=== PATIENT | male | born 1955 | race Caucasian/White ===

== ENCOUNTER 2017-04-21 21:02 | Inpatient (IN) | payer OTHER ==
[2017-04-21 22:58] LABS: ADD MAN DIFF? NO
[2017-04-21 23:04] LABS: BASOPHIL # 0.1 10^3/ul (0.0-0.1); BASOPHILS % 0.5 % (0.0-2.0); EOSINOPHILS # 0.1 10^3/ul (0.0-0.5); EOSINOPHILS % 0.9 % (0.0-7.0); HEMATOCRIT 40.2 % (42.0-52.0); HEMOGLOBIN 13.6 g/dl (14.0-18.0); LYMPHOCYTES # 4.9 10^3/ul (0.8-2.9); LYMPHOCYTES % 31.7 % (15.0-51.0); MEAN CORPUSCULAR HEMOGLOBIN 28.6 pg (29.0-33.0); MEAN CORPUSCULAR HGB CONC 33.8 g/dl (32.0-37.0); MEAN CORPUSCULAR VOLUME 84.5 fl (82.0-101.0); MEAN PLATELET VOLUME 10.2 fl (7.4-10.4); MONOCYTE # 1.2 10^3/ul (0.3-0.9); MONOCYTES % 7.8 % (0.0-11.0); NEUTROPHILS % 58.6 % (39.0-77.0); PLATELET COUNT 279 10^3/UL (140-415); RED BLOOD COUNT 4.76 10^6/ul (4.70-6.10); RED CELL DISTRIBUTION WIDTH 13.5 % (11.5-14.5)
[2017-04-21 23:04] LABS: WHITE BLOOD COUNT 15.3 10^3/ul (4.8-10.8)
[2017-04-21 23:20] LABS: ALANINE AMINOTRANSFERASE 32 IU/L (13-69); ALBUMIN/GLOBULIN RATIO 1.25; ALKALINE PHOSPHATASE 54 IU/L (42-121); ANION GAP 15 (8-16); ASPARTATE AMINO TRANSFERASE 20 IU/L (15-46); BLOOD UREA NITROGEN 22 mg/dl (7-20); CALCIUM 9.4 mg/dl (8.4-10.2); CARBON DIOXIDE 22 mmol/L (21-31); CHLORIDE 109 mmol/L (97-110); CREATININE 0.79 mg/dl (0.61-1.24); GLUCOSE 129 mg/dl (70-220); POTASSIUM 3.4 mmol/L (3.5-5.1); SODIUM 143 mmol/L (135-144); TOTAL PROTEIN 7.2 g/dl (6.1-8.1)
[2017-04-21 23:32] LABS: B-TYPE NATRIURETIC PEPTIDE 231 PG/ML (0-125); TROPONIN-I 0.019 ng/ml (0.00-0.12)
[2017-04-21 23:45] LABS: INR 0.95; PROTIME 12.8 Sec (11.9-14.9)
[2017-04-21 23:46] LABS: PARTIAL THROMBOPLASTIN TIME 26.5 Sec (25.0-35.0)
[2017-04-22] MEDS ORDERED: NACL 0.9% 3 ML SYG IV (02:30)
[2017-04-22] MEDS ORDERED: DOCUSATE SODIUM 100 MG CAP PO (02:30)
[2017-04-22] MEDS ORDERED: ACETAMINOPHEN 325 MG TAB PO (02:30)
[2017-04-22] MEDS ORDERED: BISACODYL (EC) 5 MG TAB PO (02:30)
[2017-04-22] MEDS ORDERED: NITROGLYCERIN (SL) 0.4 MG TAB SL (02:30)
[2017-04-22 05:30] LABS: ADD MAN DIFF? NO
[2017-04-22 05:33] LABS: BASOPHIL # 0.1 10^3/ul (0.0-0.1); BASOPHILS % 0.5 % (0.0-2.0); EOSINOPHILS # 0.2 10^3/ul (0.0-0.5); EOSINOPHILS % 1.9 % (0.0-7.0); HEMATOCRIT 39.8 % (42.0-52.0); HEMOGLOBIN 13.3 g/dl (14.0-18.0); LYMPHOCYTES # 3.7 10^3/ul (0.8-2.9); MEAN CORPUSCULAR HEMOGLOBIN 28.5 pg (29.0-33.0); MEAN CORPUSCULAR HGB CONC 33.4 g/dl (32.0-37.0); MEAN CORPUSCULAR VOLUME 85.4 fl (82.0-101.0); MEAN PLATELET VOLUME 10.4 fl (7.4-10.4); NEUTROPHIL # 6.2 10^3/ul (1.6-7.5); NEUTROPHILS % 55.1 % (39.0-77.0); PLATELET COUNT 263 10^3/UL (140-415); RED BLOOD COUNT 4.66 10^6/ul (4.70-6.10); RED CELL DISTRIBUTION WIDTH 13.9 % (11.5-14.5)
[2017-04-22 05:33] LABS: WHITE BLOOD COUNT 11.3 10^3/ul (4.8-10.8)
[2017-04-22] MEDS: METHYLPREDNISOLONE 125 MG INJ IV (05:34)
[2017-04-22] MEDS: ALBUTEROL/IPRATROPIUM (NEB) 3 ML AMP HHN ×5 (05:39→20:18)
[2017-04-22 06:03] LABS: MAGNESIUM 2.4 mg/dl (1.7-2.5)
[2017-04-22 06:03] LABS: CREATINE KINASE 99 IU/L (23-200)
[2017-04-22] MEDS: LEVOFLOXACIN 750MG/D5W (PMX) 150 ML IVPB (06:06)
[2017-04-22 06:08] LABS: CHOLESTEROL 121 mg/dl (100-200)
[2017-04-22 06:08] LABS: ALANINE AMINOTRANSFERASE 33 IU/L (13-69); ALBUMIN 3.8 g/dl (3.3-4.9); ALBUMIN/GLOBULIN RATIO 1.35; ALKALINE PHOSPHATASE 53 IU/L (42-121); ANION GAP 16 (8-16); ASPARTATE AMINO TRANSFERASE 20 IU/L (15-46); BILIRUBIN,INDIRECT 0.1 mg/dl (0-1.1); BILIRUBIN,TOTAL 0.1 mg/dl (0.2-1.3); BLOOD UREA NITROGEN 20 mg/dl (7-20); CALCIUM 8.7 mg/dl (8.4-10.2); CARBON DIOXIDE 27 mmol/L (21-31); CHLORIDE 109 mmol/L (97-110); CHOL/HDL RATIO 4.8 RATIO; CREATININE 0.73 mg/dl (0.61-1.24); GLUCOSE 96 mg/dl (70-220); HDL CHOLESTEROL 25 mg/dl (30-78); LDL CHOLESTEROL,CALCULATED 64 mg/dl; POTASSIUM 3.6 mmol/L (3.5-5.1); SODIUM 148 mmol/L (135-144); TOTAL PROTEIN 6.6 g/dl (6.1-8.1); TRIGLYCERIDES 160 mg/dl (0-149)
[2017-04-22 06:12] LABS: CK INDEX 1.4
[2017-04-22 06:28] LABS: CK-MB 1.42 ng/ml (0.0-2.4); TROPONIN-I < 0.012 ng/ml (0.00-0.12)
[2017-04-22 07:45] LABS: HEMOGLOBIN A1C 5.3 % (0-5.9)
[2017-04-22] MEDS ORDERED: ASPIRIN 81 MG TAB PO (09:00)
[2017-04-22] MEDS: ONDANSETRON 4 MG TAB PO (09:49)
[2017-04-22] MEDS: morphine 2 MG INJ IV (09:51)
[2017-04-22 11:46] LABS: CREATINE KINASE 90 IU/L (23-200)
[2017-04-22 11:59] LABS: CK INDEX 1.4
[2017-04-22 12:03] LABS: TROPONIN-I < 0.012 ng/ml (0.00-0.12)
[2017-04-22] MEDS: NICOTINE (21 MG/24 HR) PATCH TRANSDERM (12:57)
[2017-04-22] MEDS: METHYLPREDNISOLONE 40 MG INJ IV (20:15)
[2017-04-22] MEDS: FISH OIL 1,000 MG CAP PO (21:56)
[2017-04-22] MEDS: MONTELUKAST 10 MG TAB PO (21:57)
[2017-04-23] MEDS: ALBUTEROL/IPRATROPIUM (NEB) 3 ML AMP HHN ×6 (01:00→20:59)
[2017-04-23] MEDS: morphine 2 MG INJ IV ×3 (05:00→23:48)
[2017-04-23] MEDS: METHYLPREDNISOLONE 40 MG INJ IV (09:28)
[2017-04-23] MEDS: NICOTINE (21 MG/24 HR) PATCH TRANSDERM (09:28)
[2017-04-23] MEDS: FISH OIL 1,000 MG CAP PO ×2 (09:28→20:57)
[2017-04-23 10:16] LABS: ANION GAP 12 (8-16); BLOOD UREA NITROGEN 21 mg/dl (7-20); CALCIUM 8.9 mg/dl (8.4-10.2); CARBON DIOXIDE 27 mmol/L (21-31); CHLORIDE 107 mmol/L (97-110); CREATININE 0.79 mg/dl (0.61-1.24); GLUCOSE 131 mg/dl (70-220); MAGNESIUM 2.2 mg/dl (1.7-2.5); POTASSIUM 4.1 mmol/L (3.5-5.1); SODIUM 142 mmol/L (135-144)
[2017-04-23] MEDS ORDERED: ALPRAZOLAM 0.25 MG TAB (10:33)
[2017-04-23] MEDS: ALPRAZOLAM 0.5 MG TAB PO (10:36)
[2017-04-23] MEDS: SALMETEROL/FLUTICASONE 100/50 INHA INH (20:57)
[2017-04-23] MEDS: MONTELUKAST 10 MG TAB PO (20:58)
[2017-04-23] MEDS: ZOLPIDEM 5 MG TAB PO (23:41)
[2017-04-23] MEDS: ONDANSETRON 4 MG TAB PO (23:47)
[2017-04-24] MEDS: ALBUTEROL/IPRATROPIUM (NEB) 3 ML AMP HHN ×5 (00:12→18:00)
[2017-04-24] MEDS: SALMETEROL/FLUTICASONE 100/50 INHA INH (10:07)
[2017-04-24] MEDS: FISH OIL 1,000 MG CAP PO (10:08)
[2017-04-24] MEDS: predniSONE 20 MG TAB PO (10:09)
[2017-04-24] MEDS: NICOTINE (21 MG/24 HR) PATCH TRANSDERM (10:10)
[2017-04-24] MEDS: ALPRAZOLAM 0.25 MG TAB PO (15:47)
[2017-04-24] MEDS: PERMETHRIN 5% 60 GM CR TOP (16:30)
== END 2017-04-24 20:00 | disposition home or self-care (01) | DRG 192 ==
LOC: E/R 21:02 → MS3 04-22 00:16
DX: J44.1 Chronic obstructive pulmonary disease with (acute) exacerbation (principal); E66.9 Obesity, unspecified; Z68.31 Body mass index [BMI] 31.0-31.9, adult; F17.210 Nicotine dependence, cigarettes, uncomplicated; F41.9 Anxiety disorder, unspecified
CPT/HCPCS: 71045; 80048; 80053; 80061; 82550; 82553; 82962; 83036; 83735; 83880; 84443; 84484; 85025; 85610; 85730; 93005; 93306; 94640; 94664